=== PATIENT | female | born 1965 | race African-American/Black ===

== ENCOUNTER 2017-10-15 16:08 | Emergency (ER) | payer MEDICAID ==
[~2017-10-15] VITALS: Ht 167.6 cm; Wt 70.0 kg
[2017-10-15 16:10] VITALS: BP 153/80
== END 2017-10-15 19:41 | disposition left against medical advice (07) ==
LOC: ER 16:18
DX: Z53.21 Procedure and treatment not carried out due to patient leaving prior to being seen by health care provider (principal)